=== PATIENT | male | born 1970 | race Caucasian/White ===

== ENCOUNTER 2018-09-11 06:04 | Emergency (ER) | payer SELFPAY ==
[~2018-09-11] VITALS: Ht 185.4 cm; Wt 104.0 kg
[2018-09-11 06:24] VITALS: Ht 185.4 cm; Wt 104.0 kg
[2018-09-11 07:03] LABS: BASOPHIL % 1.2 % (0-2); PLATELET COUNT 241 x10^3mcL (130-400); RED CELL DISTRIBUTION WIDTH 12.7 % (11.5-14.5)
[2018-09-11 07:15] LABS: CALCIUM 9.4 mg/dL (8.5-10.1); CHLORIDE SERUM 101 mmol/L (98-107); GFR1 > 60 mL/min; GLUCOSE SERUM 106 mg/dL (74-106); POTASSIUM SERUM 4.7 mmol/L (3.5-5.1); SODIUM SERUM 137 mmol/L (136-145)
[2018-09-11 07:20] LABS: ALBUMIN 4.5 g/dL (3.4-5.0); ALKALINE PHOSPHATASE 66 U/L (46-116); ALT/SGPT 48 U/L (16-63); AST/SGOT 30 U/L (15-37); BILIRUBIN TOTAL 0.52 mg/dL (0.20-1.00); TOTAL PROTEIN, SERUM 8.2 g/dL (6.4-8.2)
[2018-09-11 08:18] VITALS: BP 119/74
== END 2018-09-11 08:18 | disposition home or self-care (01) ==
LOC: ED 06:04
PROVIDERS: Emergency Medicine
DX: R55 Syncope and collapse (principal); R25.2 Cramp and spasm; I10 Essential (primary) hypertension; Z88.6 Allergy status to analgesic agent
CPT/HCPCS: 36415; Q0092

== ENCOUNTER 2019-07-25 16:52 | Emergency (ER) | payer BC ==
[~2019-07-25] VITALS: Ht 185.4 cm; Wt 97.5 kg
[2019-07-25 17:02] VITALS: Ht 185.4 cm; Wt 97.5 kg
[2019-07-25 18:26] VITALS: BP 136/89
== END 2019-07-25 18:26 | disposition home or self-care (01) ==
LOC: ED 16:52
DX: S00.83XA Contusion of other part of head, initial encounter (principal); S05.41XA Penetrating wound of orbit with or without foreign body, right eye, initial encounter; W22.8XXA Striking against or struck by other objects, initial encounter; Y93.89 Activity, other specified; Y92.89 Other specified places as the place of occurrence of the external cause; Y99.8 Other external cause status
CPT/HCPCS: J2001